=== PATIENT | male | born 1960 | race Hispanic/Latino ===

== ENCOUNTER 2016-12-07 18:38 | Observation (INO) | payer OTHER ==
[2016-12-07] MEDS ORDERED: Glucagon Recombinant 1 mg Inj IM STA (19:34)
[2016-12-07] MEDS ORDERED: Glucagon Recombinant 1 mg Inj ONE ×4 (19:39→23:03)
--- NOTE | 2016-12-07 20:15 | C.PDOC ---
History Of Present Illness 56 year old male presents to the ED with complaints of sensation foreign body in his throat. Patient states he had steak last night and a piece is stuck in his throat. He notes he is unable to swallow fluids and tried drinking water to help the food down, however he just kept spitting it up. He has had a similar episode in the past bt usually resolved with drinking beer and water. Pt denies SOB, chest pain, vomiting, or any other complaints at this time. Time Seen by Provider: 12/07/16 19:18 Chief Complaint (Nursing): ENT Problem History Per: Patient History/Exam Limitations: None Onset/Duration Of Symptoms: Days Current Symptoms Are (Timing): Still Present Severity: Mild Past Medical History Reviewed: Historical Data, Nursing Documentation, Vital Signs Vital Signs: Last Vital Signs Temp 98.8 F 12/07/16 18:43 Pulse 89 12/07/16 23:21 Resp 22 12/07/16 23:21 BP 169/103 H 12/07/16 23:21 Pulse Ox 99 12/08/16 00:23 - Medical History PMH: Back Problems Family History: States: Unknown Family Hx - Social History Hx Tobacco Use: Yes Hx Alcohol Use: Yes Hx Substance Use: No - Immunization History Hx Tetanus Toxoid Vaccination: No Hx Influenza Vaccination: Yes Hx Pneumococcal Vaccination: No Review Of Systems Except As Marked, All Systems Reviewed And Found Negative. Constitutional: Negative for: Fever, Chills ENT: Positive for: Other (+Foreign object sensation in throat) Cardiovascular: Negative for: Chest Pain Respiratory: Negative for: Cough, Shortness of Breath Gastrointestinal: Negative for: Vomiting Physical Exam - Physical Exam Appears: Non-toxic, No Acute Distress Skin: Normal Color, Warm, Dry Head: Atraumatic, Normacephalic Eye(s): bilateral: Normal Inspection Oral Mucosa: Moist Throat: Normal, No Erythema, No Exudate, No Drooling, Other (No foreign object visualized) Neck: Normal, Supple, No Other (mass) Chest: Symmetrical Cardiovascular: Rhythm Regular Respiratory: Normal Breath Sounds, No Accessory Muscle Use, No Rales, No Rhonchi , No Wheezing Gastrointestinal/Abdominal: Normal Exam, Soft, No Tenderness Neurological/Psych: Oriented x3, Normal Speech, Normal Cognition Gait: Steady ED Course And Treatment - Laboratory Results Result Diagrams: 12/08/16 00:12/08/16 00:05 O2 Sat by Pulse Oximetry: 99 (Room air) Pulse Ox Interpretation: Normal Progress Note: patient given Glucagon IM. Upon reevaluation, patient states he feels the same. Case discussed with Dr. Guzman who recommended repeating Glucagon 1 mg IV and if after 15 minutes symptoms persist, giving Reglan 10mg IV. If after another 30 minutes the patient has no relief he advised another dose of Glucagon 1-2 mg IV and if this all fails, patient is to be admitted to medicine and he will evaluate him in the morning. Pt still feels the same after all meds were given, will be admitted to Dr Padilla's service for GI consult in AM. Reevaluation Time: 00:35 Reassessment Condition: Unchanged - Physician Consult Information Physician Contacted: Dakota Padilla Outcome Of Conversation: Case is d/w Dr. Padilla med business support professional who will admit pt to his service. 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 - Scribe Statement The provider has reviewed the documentation as recorded by the Scribe Monet Gregg. All medical record entries made by the Jessicaibe were at my direction and personally dictated by me. I have reviewed the chart and agree that the record accurately reflects my personal performance of the history, physical exam, medical decision making, and the department course for this patient. I have also personally directed, reviewed, and agree with the discharge instructions and disposition.
[2016-12-07] MEDS ORDERED: Glucagon Recombinant 1 mg Inj IV STA ×2 (20:56→22:36)
--- NOTE | 2016-12-08 00:01 | CP.PCM.HP ---
<Milo De La Torre - Last Filed: 12/08/16 07:30> History of Present Illness - History of Present Illness History of Present Illness: CC: Difficulty swallowing x 1day HPI: 56 year old male with PMHx HTN, Hypercholesterolemia, ETOH abuse - presents c/o foreign body sensation in his throat. Patient states he had steak last night and a piece is stuck in his throat. He reports associated dysphagia with throat discomfort left/lateral to the cricoid. He notes he is unable to swallow fluids and tried drinking water to help the food down, however this resulted in him choking, coughing, and spitting up the fluid. He has had similar episodes in the past, but usually resolve after drinking water/beer. Pt also reports an extensive history of daily alcohol abuse (see below), and typically becomes tremulous when he does not drink. Pt denies f/c, headache, chest pain, palpitations, SOB, abdominal pain, n/v, d/c, dysuria, sick contacts , or any other complaints at this time. PMHx: HTN, Hypercholesterolemia, ETOH abuse, kidney stones, Concussion with hematoma PSHx: Skin Graft of Right Foot due to mccurdy. Meds: Vicodin, Xanax, Diltiazem, plus other medications (unsure of dosing) Allergies: NKDA FamHx: Father at 58yo of liver cirrhosis; Mother at 80yo of Alzheimers SocHx: Smokes 3 cigarets/day x 20yrs; ETOH 2 40oz beer/day x 30yrs; Denies drugs; [facility]; Works for [employer]. PMD: Dr. Rahat Montiel Present on Admission - Present on Admission Any Indicators Present on Admission: No Review of Systems - Constitutional Constitutional: absent: Chills, Fatigue, Fever, Headache - EENT Eyes: absent: Blurred Vision, Change in Vision Nose/Mouth/Throat: Dysphagia, Sore Throat. absent: Nasal Congestion, Nasal Discharge - Cardiovascular Cardiovascular: absent: Chest Pain, Diaphoresis, Dyspnea - Respiratory Respiratory: absent: Dyspnea, Hemoptysis - Gastrointestinal Gastrointestinal: Belching, Dysphagia. absent: Bloating, Constipation, Diarrhea - Genitourinary Genitourinary: absent: Dysuria, Nocturia - Musculoskeletal Musculoskeletal: absent: Atrophy, Numbness, Tingling - Neurological Neurological: absent: Dizziness, Tremor, Weakness - Psychiatric Psychiatric: absent: Anhedonia, Anxiety, Confusion, Depression - Endocrine Endocrine: absent: Fatigue, Palpitations - Hematologic/Lymphatic Hematologic: absent: Easy Bleeding, Easy Bruising Past Patient History - Past Social History Smoking Status: Heavy Smoker > 10 Cigarettes Daily - PSYCHIATRIC Hx Substance Use: No - SURGICAL HISTORY Hx Surgeries: Yes Other/Comment: leg - ANESTHESIA Hx Anesthesia: Yes Hx Anesthesia Reactions: No Meds Allergies/Adverse Reactions: Allergies Allergy/AdvReac Type Severity Reaction Status Date / Time No Known Allergies Allergy Unverified 08/19/13 16:46 Physical Exam - Constitutional Appears: Non-toxic, No Acute Distress - Head Exam Head Exam: ATRAUMATIC, NORMAL INSPECTION - Eye Exam Eye Exam: EOMI, Normal appearance, PERRL - ENT Exam ENT Exam: Mucous Membranes Moist (copious saliva production), Normal Oropharynx - Neck Exam Neck exam: Positive for: Tenderness (Left/lateral of cricoid). Negative for: Lymphadenopathy, Thyromegaly - Respiratory Exam Respiratory Exam: Clear to Auscultation Bilateral, NORMAL BREATHING PATTERN. absent: Wheezes - Cardiovascular Exam Cardiovascular Exam: REGULAR RHYTHM, +S1, +S2 - GI/Abdominal Exam GI & Abdominal Exam: Normal Bowel Sounds, Soft. absent: Tenderness - Extremities Exam Extremities exam: Positive for: normal inspection - Neurological Exam Neurological exam: Alert, CN II-XII Intact, Oriented x3, Reflexes Normal - Psychiatric Exam Psychiatric exam: Normal Affect, Normal Mood - Skin Skin Exam: Dry, Intact, Normal Color, Warm Results - Vital Signs Recent Vital Signs: Last Vital Signs Temp 98.8 F 12/07/16 18:43 Pulse 89 12/07/16 23:21 Resp 22 12/07/16 23:21 BP 169/103 H 12/07/16 23:21 Pulse Ox 98 12/07/16 23:21 - Labs Result Diagrams: 12/08/16 07:06 12/08/16 00:05 Assessment & Plan - Assessment and Plan (Free Text) Assessment: Foreign body sensation in Throat -GI Consult, Dr. Guzman - recommended repeating Glucagon 1 mg IV, giving Reglan 10mg IV, and another dose of Glucagon 1mg IV (glucagon for decreased peristalsis and relaxation of esophageal smooth muscle). Since treatment failed , GI will evaluate him in the morning. -f/u CT neck soft tissue- unofficial read with Edge Stripper shows evidence of foreign body lodged within esophagus just below the epiglottis -f/u CT Chest -NPO Alcohol Abuse -hx of alcohol withdrawal and tremors when he does not drink (last drink 12/05/16 ) -Ativan 1mg IVP Q3H PRN, anxiety -Ativan 1mg IVP stat -Thiamine 100mg IV once -Tbili 1.4 H; AST 36; ALT 39. HTN -BP on admission 172/104 (pt reports his average BP is 175/100). -Pt unsure of his home medication Hx Hypercholesterolemia -Pt unsure of his home medication Electrolyte Imbalance -Hypokalemia, K3.2 --> 1/2NS w/KCl 40 at 100cc/hr Prophylaxis -SCDs -NPO -Hold heparin for possible GI procedure - Date & Time Date: 12/08/16 Time: 00:02 <Dakota Padilla - Last Filed: 12/22/16 19:28> Results - Vital Signs Recent Vital Signs: Last Vital Signs Temp 98.6 F 12/09/16 10:55 Pulse 83 12/09/16 10:55 Resp 17 12/09/16 10:55 BP 141/89 12/09/16 10:55 Pulse Ox 99 12/09/16 10:55 - Labs Result Diagrams: 12/09/16 07:10 12/09/16 07:10 Attending/Attestation - Attestation I have personally seen and examined this patient.: Yes I have fully participated in the care of the patient.: Yes I have reviewed all pertinent clinical information: Yes
[2016-12-08 00:12] LABS: BASO % 0.4 % (0.0-2.0); EOS # 0.1 K/uL (0.0-0.7); EOS % 0.8 % (0.0-4.0); HEMATOCRIT 43.4 % (35.0-51.0); LYMPH # 1.1 K/uL (1.0-4.3); LYMPH % 14.8 % (20.0-40.0); MEAN CELL VOLUME 91.7 fL (80.0-94.0); MEAN CORPUSCULAR HEMOGLOBIN 30.9 pg (27.0-31.0); MEAN CORPUSCULAR HGB CONC 33.7 g/dL (33.0-37.0); MEAN PLATELET VOLUME 9.2 fL (7.2-11.7); MONO # 0.6 K/uL (0.0-0.8); MONO % 7.2 % (0.0-10.0); RED CELL DISTRIBUTION WIDTH 13.1 % (11.5-14.5); WHITE BLOOD COUNT 7.7 K/uL (4.8-10.8)
[2016-12-08 00:17] LABS: INR 1.1
[2016-12-08 00:18] LABS: CHLORIDE 106 mmol/L (98-107); POTASSIUM 3.2 mmol/L (3.6-5.2); SODIUM 142 mmol/L (132-148)
[2016-12-08 00:20] LABS: BILIRUBIN,TOTAL 1.4 mg/dL (0.2-1.3); GFR AFRICAN-AMERICAN > 60
[2016-12-08 00:21] LABS: ALB/GLOB RATIO 1.3 (1.0-2.1); ALKALINE PHOSPHATASE 59 U/L (38-126); ALT/SGPT 39 U/L (21-72); AST/SGOT 36 U/L (17-59); BLOOD UREA NITROGEN 16 mg/dL (9-20); CALCIUM 9.4 mg/dl (8.6-10.4); CARBON DIOXIDE 22 mmol/L (22-30); GLUCOSE,RANDOM 159 mg/dL (75-110); TOTAL PROTEIN 8.1 g/dL (6.3-8.3)
[2016-12-08] MEDS ORDERED: Thiamine 100 mg/ml Inj IV ONE (01:33)
[2016-12-08 01:50] LABS: MAGNESIUM 2.3 mg/dL (1.6-2.3)
[2016-12-08] MEDS: Potassium Chloride 40 MEQ in Sodium Chloride 0.45% 1,000 ML IV SCH ×4 (02:59→22:25)
[2016-12-08 07:19] LABS: BASO % 0.6 % (0.0-2.0); EOS # 0.1 K/uL (0.0-0.7); EOS % 1.3 % (0.0-4.0); HEMATOCRIT 43.5 % (35.0-51.0); LYMPH # 1.3 K/uL (1.0-4.3); MEAN CORPUSCULAR HEMOGLOBIN 31.5 pg (27.0-31.0); MEAN CORPUSCULAR HGB CONC 34.2 g/dL (33.0-37.0); MEAN PLATELET VOLUME 9.3 fL (7.2-11.7); MONO # 0.6 K/uL (0.0-0.8); MONO % 8.6 % (0.0-10.0); RED CELL DISTRIBUTION WIDTH 13.1 % (11.5-14.5); WHITE BLOOD COUNT 7.2 K/uL (4.8-10.8)
[2016-12-08 07:28] LABS: CHLORIDE 106 mmol/L (98-107); POTASSIUM 3.7 mmol/L (3.6-5.2); SODIUM 145 mmol/L (132-148)
[2016-12-08 07:30] LABS: ALB/GLOB RATIO 1.3 (1.0-2.1); ALKALINE PHOSPHATASE 60 U/L (38-126); AST/SGOT 38 U/L (17-59); BILIRUBIN,TOTAL 1.5 mg/dL (0.2-1.3); BLOOD UREA NITROGEN 19 mg/dL (9-20); CARBON DIOXIDE 23 mmol/L (22-30); GFR AFRICAN-AMERICAN > 60; TOTAL PROTEIN 8.1 g/dL (6.3-8.3)
[2016-12-08 07:31] LABS: ALT/SGPT 33 U/L (21-72); CALCIUM 9.2 mg/dl (8.6-10.4); GLUCOSE,RANDOM 107 mg/dL (75-110); MAGNESIUM 2.1 mg/dL (1.6-2.3); PHOSPHOROUS 3.9 mg/dL (2.5-4.5)
--- NOTE | 2016-12-08 08:26 | CT ---
PROCEDURE: CT Chest without contrast HISTORY: Foreign body COMPARISON: None. TECHNIQUE: Contiguous axial images were obtained through the chest without intravenous contrast enhancement. Sagittal and coronal reconstructions were performed. Radiation dose (DLP): 581.86 mGy-cm. This CT exam was performed using one or more of the following dose reduction techniques: Automated exposure control, adjustment of the mA and/or kV according to patient size, and/or use of iterative reconstruction technique. FINDINGS: LUNGS: Clear lungs. Visualized airways demonstrate mild bubbly soft tissue density in the posterior right mid trachea likely mucous. No radiopaque foreign body identified. MEDIASTINUM: Unremarkable thoracic aorta. No aneurysm. Normal sized heart. No significant pericardial effusion. Coronary arterial calcifications noted. Main pulmonary artery unremarkable. No vascular congestion. No lymphadenopathy. PLEURA: No pleural fluid. No pneumothorax. BONES: No fracture. No destructive lesion. The osseous structures demonstrate degenerative changes. UPPER ABDOMEN: Geographic hypoattenuation of the liver consistent with hepatic steatosis. No intrahepatic biliary ductal dilatation. Collapsed stomach limiting evaluation. Visualized portions of the colon and small bowel are grossly unremarkable OTHER FINDINGS: 2.3 x 1.3 x 2.4 centimeter oval-shaped soft tissue nodule, with clear margins, in the anterior soft tissues just left of midline. Soft tissue punctate calcification in the posterior aspect on the right. Bubbly soft tissue density in the proximal aspect of the esophagus with minimal focal expansion of the esophagus, measuring approximately 2.3 centimeter, best seen on series 4, image 11. IMPRESSION: No radiopaque foreign body identified within the airways. Minimal presumed mucous. Bubbly soft tissue density in the proximal aspect of the esophagus with mild focal expansion of the esophagus. This is best seen on series 4, image 11. Clinical correlation required. Direct visualization can be obtained with endoscopy. 2.3 x 1.3 x 2.4 centimeter oval-shaped soft tissue nodule with clear margins in the anterior aspect, left of midline. Please note that this report is in general agreement with the preliminary report provided by [facility].
--- NOTE | 2016-12-08 09:00 | CT ---
PROCEDURE: CT NECK WITHOUT CONTRAST HISTORY: foreign body COMPARISON: None. TECHNIQUE: CT of the neck without intravenous contrast. Coronal and sagittal reformats generated. Radiation dose: DLP 424.44 mGy-cm This CT exam was performed using one or more of the following dose reduction techniques: Automated exposure control, adjustment of the mA and/or kV according to patient size, and/or use of iterative reconstruction technique. FINDINGS: There are retention cysts/polyps in the maxillary sinuses. NASOPHARYNX: Unremarkable. SUPRAHYOID NECK: Unremarkable oropharynx, oral cavity, parapharyngeal space and retropharyngeal space. INFRAHYOID NECK: Unremarkable larynx, hypopharynx, and supraglottic space. Vocal cords intact. MASS: None. GLANDS: Parotid and submandibular glands unremarkable. Normal size thyroid gland, without nodule. LYMPH NODES: There is mild asymmetric enlargement of the left submandibular lymph nodes. CERVICAL SPINE: No fracture or focal lesion. Degenerative disc disease with bridging anterior osteophytes at C4-5. OTHER FINDINGS: There is apparent dilatation of the esophagus at the level of T1-T2 with central heterogeneous material. No radiopaque foreign body. IMPRESSION: Mild dilatation of the proximal thoracic esophagus which is incompletely imaged. No radiopaque foreign body. Clinical follow-up is recommended and there esophagram could be performed if clinically indicated. 2. Mild asymmetric enlargement of the left submandibular lymph nodes, likely reactive. A preliminary report was provided by [email or web address].
[2016-12-08] MEDS ORDERED: Midazolam 2 MG/2 ML VIAL ONE (12:15)
[2016-12-08] MEDS ORDERED: Lidocaine 2% Inj (20ml) ONE (12:15)
[2016-12-08] MEDS ORDERED: Propofol 10 mg/ml Inj (20 ML) ONE ×2 (12:17→12:28)
[2016-12-08] MEDS ORDERED: Glucagon Recombinant 1 mg Inj ONE (12:19)
[2016-12-08] MEDS ORDERED: Succinylcholine Chloride 20 mg/ml Syr (5 ml) IV ONE (12:26)
[2016-12-08] MEDS: metroNIDAZOLE IV 500 mg/100 ml 100 ML IVPB SCH ×2 (14:40→22:27)
[2016-12-08 17:49] LABS: CARCINOEMBRYONIC ANTIGEN 2.3 ng/mL (0-3.0)
[2016-12-08 17:54] LABS: CA 19-9 23.6 U/mL (0-37)
--- NOTE | 2016-12-08 20:09 | CP.PCM.PN ---
<Sea Godoy - Last Filed: 12/08/16 20:06> Subjective - Date & Time of Evaluation Date of Evaluation: 12/08/16 Time of Evaluation: 09:20 - Subjective Subjective: 56 year old male with PMHx HTN, Hypercholesterolemia, ETOH abuse - presents c/o foreign body sensation in his throat. Pt. underwent EGD today and per pt. he stated that a piece of steak was removed and he feels much better. He will also have to repeat EGD tomorrow. Pt denies f/c, headache, chest pain, palpitations, SOB, abdominal pain, n/v, d/c, or dysuria. Objective - Vital Signs/Intake and Output Vital Signs (last 24 hours): Temp Pulse Resp BP Pulse Ox 98.4 F 97 H 20 142/93 H 98 12/08/16 15:05 12/08/16 15:05 12/08/16 15:05 12/08/16 15:05 12/08/16 15:05 Intake and Output: 12/08/16 12/09/16 18:59 06:59 Intake Total 480 Balance 480 - Medications Medications: Current Medications Potassium Chloride 40 meq/ (Sodium Chloride) 1,020 mls @ 100 mls/hr IV .[id number] [facility] Last Admin: 12/08/16 18:39 Dose: 100 mls/hr Metronidazole (Flagyl) 100 mls @ 100 mls/hr IVPB Q8H [facility] Last Admin: 12/08/16 14:40 Dose: 100 mls/hr Ceftriaxone Sodium 1 gm/ (Sodium Chloride) 100 mls @ 100 mls/hr IVPB Q12H [facility] Last Admin: 12/08/16 13:34 Dose: 50 mls Lorazepam (Ativan) 1 mg IVP Q6H PRN PRN Reason: Anxiety Pneumococcal Polyvalent Vaccine (Pneumovax 23 Vaccine) 0.5 ml IM .ONCE ONE Stop: 12/10/16 10:01 Sucralfate (Carafate Oral Susp) 1 gm PO ACBHS [facility] - Labs Labs: 12/08/16 07:06 12/08/16 07:06 PT 11.9 SECONDS (9.7-12.2) 12/08/16 00:05 INR 1.1 12/08/16 00:05 APTT 30 SECONDS (21-34) 12/08/16 00:05 - Constitutional Appears: Non-toxic, No Acute Distress - Head Exam Head Exam: ATRAUMATIC - Eye Exam Eye Exam: EOMI - ENT Exam ENT Exam: Mucous Membranes Moist - Neck Exam Neck Exam: Full ROM, Normal Inspection. absent: Lymphadenopathy, Thyromegaly - Respiratory Exam Respiratory Exam: Clear to Ausculation Bilateral, NORMAL BREATHING PATTERN. absent: Rhonchi, Wheezes - Cardiovascular Exam Cardiovascular Exam: REGULAR RHYTHM, RRR, +S1, +S2. absent: JVD - GI/Abdominal Exam GI & Abdominal Exam: Soft, Normal Bowel Sounds. absent: Tenderness - Extremities Exam Extremities Exam: Full ROM. absent: Joint Swelling - Neurological Exam Neurological Exam: Alert, Awake, CN II-XII Intact, Normal Gait, Oriented x3 - Psychiatric Exam Psychiatric exam: Normal Affect, Normal Mood - Skin Skin Exam: Dry, Intact, Normal Color, Warm Assessment and Plan - Assessment and Plan (Free Text) Plan: Foreign body sensation in Throat -GI Consult, Dr. Guzman - recommended repeating Glucagon 1 mg IV, giving Reglan 10mg IV, and another dose of Glucagon 1mg IV (glucagon for decreased peristalsis and relaxation of esophageal smooth muscle). Since treatment failed , GI will evaluate him in the morning. -CT neck soft tissue- No radioopaque foreign body found, mild dilation of prox thoracic esophagus - please see full report -CT Chest -No radioopaque foreign body found - please see full report -EGD on 12/08 removed food particle and will repeat EGD tomorrow, pt. feels better. -NPO after breakfast Alcohol Abuse -hx of alcohol withdrawal and tremors when he does not drink (last drink 12/05/16 ) -Ativan 1mg IVP Q3H PRN, anxiety -Ativan 1mg IVP stat -Thiamine 100mg IV once -Tbili 1.4 H; AST 36; ALT 39. HTN -BP on admission 172/104 (pt reports his average BP is 175/100). -BP 142/93 on 12/08 -Pt unsure of his home medication Hx Hypercholesterolemia -Pt unsure of his home medication Electrolyte Imbalance -Hypokalemia, K3.2 --> 1/2NS w/KCl 40 at 100cc/hr Prophylaxis -SCDs -NPO after breakfast -Hold heparin for possible GI procedure <Todd Hernandez - Last Filed: 12/09/16 18:02> Objective - Vital Signs/Intake and Output Vital Signs (last 24 hours): Temp Pulse Resp BP Pulse Ox 98.6 F 83 17 141/89 99 12/09/16 10:55 12/09/16 10:55 12/09/16 10:55 12/09/16 10:55 12/09/16 10:55 Intake and Output: 12/09/16 12/09/16 06:59 18:59 Intake Total 1200 250 Balance 1200 250 - Labs Labs: 12/09/16 07:10 12/09/16 07:10 PT 11.9 SECONDS (9.7-12.2) 12/08/16 00:05 INR 1.1 12/08/16 00:05 APTT 30 SECONDS (21-34) 12/08/16 00:05 Attending/Attestation - Attestation I have personally seen and examined this patient.: Yes I have fully participated in the care of the patient.: Yes I have reviewed all pertinent clinical information, including history, physical exam and plan: Yes Notes (Text): 12/09/16 18:01 Patient was seen and examined at bedside with resident S/P EGD and removal of foreign body I agree with above assessment/plan by the resident
[2016-12-08] MEDS: Sucralfate 1 gm/10 ml Oral Susp UD PO SCH (22:27)
[2016-12-09 07:37] LABS: BASO % 0.6 % (0.0-2.0); EOS # 0.1 K/uL (0.0-0.7); EOS % 2.5 % (0.0-4.0); HEMATOCRIT 41.8 % (35.0-51.0); LYMPH # 1.1 K/uL (1.0-4.3); LYMPH % 19.2 % (20.0-40.0); MEAN CELL VOLUME 92.2 fL (80.0-94.0); MEAN CORPUSCULAR HEMOGLOBIN 31.3 pg (27.0-31.0); MEAN PLATELET VOLUME 9.4 fL (7.2-11.7); MONO # 0.5 K/uL (0.0-0.8); MONO % 8.9 % (0.0-10.0); RED CELL DISTRIBUTION WIDTH 12.8 % (11.5-14.5); WHITE BLOOD COUNT 5.7 K/uL (4.8-10.8)
[2016-12-09 08:24] LABS: CHLORIDE 104 mmol/L (98-107); POTASSIUM 3.8 mmol/L (3.6-5.2); SODIUM 137 mmol/L (132-148)
[2016-12-09 08:26] LABS: AST/SGOT 38 U/L (17-59); BILIRUBIN,TOTAL 1.2 mg/dL (0.2-1.3); CARBON DIOXIDE 22 mmol/L (22-30); GFR AFRICAN-AMERICAN > 60
[2016-12-09 08:27] LABS: ALB/GLOB RATIO 1.3 (1.0-2.1); ALKALINE PHOSPHATASE 52 U/L (38-126); ALT/SGPT 30 U/L (21-72); BLOOD UREA NITROGEN 13 mg/dL (9-20); CALCIUM 8.5 mg/dl (8.6-10.4); GLUCOSE,RANDOM 94 mg/dL (75-110); PHOSPHOROUS 3.7 mg/dL (2.5-4.5)
[2016-12-09 08:28] LABS: MAGNESIUM 1.9 mg/dL (1.6-2.3)
[2016-12-09 08:57] LABS: CARCINOEMBRYONIC ANTIGEN 2.1 ng/mL (0-3.0)
[2016-12-09] MEDS ORDERED: Midazolam 2 MG/2 ML VIAL ONE (10:07)
[2016-12-09] MEDS ORDERED: Propofol 10 mg/ml Inj (20 ML) ONE (10:08)
--- NOTE | 2016-12-09 10:29 | CP.PCM.PN ---
Subjective - Date & Time of Evaluation Date of Evaluation: 12/09/16 Time of Evaluation: 07:30 Objective - Vital Signs/Intake and Output Vital Signs (last 24 hours): Temp Pulse Resp BP Pulse Ox 98.3 F 71 20 151/86 H 98 12/09/16 10:05 12/09/16 10:05 12/09/16 10:05 12/09/16 10:05 12/09/16 10:05 Intake and Output: 12/09/16 12/09/16 06:59 18:59 Intake Total 1200 100 Balance 1200 100 - Medications Medications: Current Medications Potassium Chloride 40 meq/ (Sodium Chloride) 1,020 mls @ 100 mls/hr IV .[id number] [facility] Last Admin: 12/08/16 22:25 Dose: Not Given Metronidazole (Flagyl) 100 mls @ 100 mls/hr IVPB Q8H [facility] Last Admin: 12/08/16 22:27 Dose: 100 mls/hr Ceftriaxone Sodium 1 gm/ (Sodium Chloride) 100 mls @ 100 mls/hr IVPB Q12H [facility] Last Admin: 12/09/16 01:45 Dose: 100 mls/hr Lorazepam (Ativan) 1 mg IVP Q6H PRN PRN Reason: Anxiety Pneumococcal Polyvalent Vaccine (Pneumovax 23 Vaccine) 0.5 ml IM .ONCE ONE Stop: 12/10/16 10:01 Sucralfate (Carafate Oral Susp) 1 gm PO ACBHS [facility] Last Admin: 12/08/16 22:27 Dose: 1 gm - Labs Labs: 12/09/16 07:10 12/09/16 07:10 PT 11.9 SECONDS (9.7-12.2) 12/08/16 00:05 INR 1.1 12/08/16 00:05 APTT 30 SECONDS (21-34) 12/08/16 00:05 - Constitutional Appears: Non-toxic, No Acute Distress - Head Exam Head Exam: ATRAUMATIC, NORMOCEPHALIC - Eye Exam Eye Exam: EOMI - ENT Exam ENT Exam: Mucous Membranes Moist - Neck Exam Neck Exam: Full ROM - Respiratory Exam Respiratory Exam: Clear to Ausculation Bilateral, NORMAL BREATHING PATTERN. absent: Wheezes - Cardiovascular Exam Cardiovascular Exam: REGULAR RHYTHM, RRR, +S1, +S2. absent: JVD - GI/Abdominal Exam GI & Abdominal Exam: Soft. absent: Tenderness - Extremities Exam Extremities Exam: Full ROM. absent: Joint Swelling, Pedal Edema - Neurological Exam Neurological Exam: Alert, Awake, CN II-XII Intact, Normal Gait, Oriented x3 - Psychiatric Exam Psychiatric exam: Normal Affect, Normal Mood - Skin Skin Exam: Dry, Intact, Normal Color, Warm
[2016-12-09] MEDS: Sucralfate 1 gm/10 ml Oral Susp UD PO SCH (10:36)
[2016-12-09 10:41] VITALS: TEMP 98.6
[2016-12-09 10:43] VITALS: RESP 17; O2SAT 99
[2016-12-09] MEDS ORDERED: Pantoprazole 40 mg EC Tab PO SCH (11:00)
[2016-12-09 11:10] VITALS: BP 141/89; PULSE 83
[2016-12-09] MEDS: metroNIDAZOLE IV 500 mg/100 ml 100 ML IVPB SCH (15:09)
[2016-12-09] MEDS ORDERED: Pneumococcal 23-Valent Vaccine IM ONE (16:15)
--- NOTE | 2016-12-09 18:28 | CP.PCM.DIS ---
<Sea Godoy - Last Filed: 12/09/16 23:28> Provider - Provider Date of Admission: 12/08/16 00:28 Attending physician: Dakota Pdailla MD Time Spent in preparation of Discharge (in minutes): 35 Diagnosis - Discharge Diagnosis (1) Esophageal obstruction due to food impaction Status: Acute Hospital Course - Lab Results Lab Results: Most Recent Lab Values WBC 5.7 K/uL (4.8-10.8) 12/09/16 07:10 RBC 4.53 Mil/uL (4.40-5.90) 12/09/16 07:10 Hgb 14.2 g/dL (12.0-18.0) 12/09/16 07:10 Hct 41.8 % (35.0-51.0) 12/09/16 07:10 MCV 92.2 fL (80.0-94.0) 12/09/16 07:10 MCH 31.3 pg (27.0-31.0) H 12/09/16 07:10 MCHC 34.0 g/dL (33.0-37.0) 12/09/16 07:10 RDW 12.8 % (11.5-14.5) 12/09/16 07:10 Plt Count 204 K/uL (130-400) 12/09/16 07:10 MPV 9.4 fL (7.2-11.7) 12/09/16 07:10 Neut % (Auto) 68.8 % (50.0-75.0) 12/09/16 07:10 Lymph % (Auto) 19.2 % (20.0-40.0) L 12/09/16 07:10 [place] % (Auto) 8.9 % (0.0-10.0) 12/09/16 07:10 Eos % (Auto) 2.5 % (0.0-4.0) 12/09/16 07:10 Baso % (Auto) 0.6 % (0.0-2.0) 12/09/16 07:10 Neut # 3.9 K/uL (1.8-7.0) 12/09/16 07:10 Lymph # 1.1 K/uL (1.0-4.3) 12/09/16 07:10 [place] # 0.5 K/uL (0.0-0.8) 12/09/16 07:10 Eos # 0.1 K/uL (0.0-0.7) 12/09/16 07:10 Baso # 0.0 K/uL (0.0-0.2) 12/09/16 07:10 PT 11.9 SECONDS (9.7-12.2) 12/08/16 00:05 INR 1.1 12/08/16 00:05 APTT 30 SECONDS (21-34) 12/08/16 00:05 Sodium 137 mmol/L (132-148) 12/09/16 07:10 Potassium 3.8 mmol/L (3.6-5.2) 12/09/16 07:10 Chloride 104 mmol/L (98-107) 12/09/16 07:10 Carbon Dioxide 22 mmol/L (22-30) 12/09/16 07:10 Anion Gap 16 (10-20) 12/09/16 07:10 BUN 13 mg/dL (9-20) 12/09/16 07:10 Creatinine 0.8 MG/DL (0.8-1.5) 12/09/16 07:10 Est GFR ( Amer) > 60 12/09/16 07:10 Est GFR (Non-Af Amer) > 60 12/09/16 07:10 Random Glucose 94 mg/dL (75-110) 12/09/16 07:10 Calcium 8.5 mg/dl (8.6-10.4) L 12/09/16 07:10 Phosphorus 3.7 mg/dL (2.5-4.5) 12/09/16 07:10 Magnesium 1.9 mg/dL (1.6-2.3) 12/09/16 07:10 Total Bilirubin 1.2 mg/dL (0.2-1.3) 12/09/16 07:10 AST 38 U/L (17-59) 12/09/16 07:10 ALT 30 U/L (21-72) 12/09/16 07:10 Alkaline Phosphatase 52 U/L (38-126) 12/09/16 07:10 Total Protein 7.0 g/dL (6.3-8.3) 12/09/16 07:10 Albumin 4.0 g/dL (3.5-5.0) 12/09/16 07:10 Globulin 3.0 gm/dL (2.2-3.9) 12/09/16 07:10 Albumin/Globulin Ratio 1.3 (1.0-2.1) 12/09/16 07:10 Alpha Fetoprotein 3.0 ng/mL (0.0-7.5) 12/08/16 16:50 Carcinoembryonic Ag 2.1 ng/mL (0-3.0) 12/09/16 07:10 CA 19-9 Antigen 23.6 U/mL (0-37) 12/08/16 16:50 - Hospital Course Hospital Course: 56 year old male with PMHx HTN, Hypercholesterolemia, ETOH abuse presented c/o foreign body sensation in his throat. Patient stateed he was eating steak and a piece got stuck. He reported associated dysphagia with throat discomfort left/ lateral to the cricoid. He noted he was unable to swallow fluids and tried drinking water to help the food down, however this resulted in him choking, coughing, and spitting up the fluid. CT Chest demonstrated no radioopaque foreign body found. CT neck soft tissue showed no radioopaque foreign body found and mild dilation of proximal thoracic esophagus. EGD demonstrated esophagitis, esophageal stenosis, food in the esophagus, acute gastritis, and duodenal ulcer. An EGD was performed the following day for dilation of the esophagus. After the second EGD. Pt. was medically stable for discharge and advised to follow up with GI in 1 week. This is a brief account of his stay, for more details please see his chart. - Date & Time of H&P Date of H&P: 12/09/16 Time of H&P: 07:30 Discharge Exam - Head Exam Head Exam: ATRAUMATIC, NORMOCEPHALIC - Eye Exam Eye Exam: EOMI - ENT Exam ENT Exam: Mucous Membranes Moist - Neck Exam Neck exam: Full Rom - Respiratory Exam Respiratory Exam: Clear to PA & Lateral, NORMAL BREATHING PATTERN, UNREMARKABLE. absent: Wheezes - Cardiovascular Exam Cardiovascular Exam: REGULAR RHYTHM, RRR, +S1, +S2. absent: JVD - GI/Abdominal Exam GI & Abdominal Exam: Normal Bowel Sounds, Soft, Unremarkable. absent: Tenderness - Neurological Exam Neurological exam: Alert, CN II-XII Intact, Normal Gait, Oriented x3 - Skin Skin Exam: Dry, Intact, Normal Color, Warm Discharge Plan - Discharge Medications Prescriptions: Pantoprazole [Protonix EC Tab] 40 mg PO DAILY #30 ect - Follow Up Plan Condition: GOOD Disposition: HOME/ ROUTINE Instructions: Pantoprazole (By mouth), Upper Endoscopy (DC) Additional Instructions: Pt. medically stable for discharge. Please follow up with Dr. Guzman in 1 week for further work up. Dr Guzman [address] [facility] [id number] <Todd Hernandez M - Last Filed: 12/10/16 18:05> Provider - Provider Date of Admission: 12/08/16 00:28 Attending physician: Dakota Padilla MD Hospital Course - Lab Results Lab Results: Most Recent Lab Values WBC 5.7 K/uL (4.8-10.8) 12/09/16 07:10 RBC 4.53 Mil/uL (4.40-5.90) 12/09/16 07:10 Hgb 14.2 g/dL (12.0-18.0) 12/09/16 07:10 Hct 41.8 % (35.0-51.0) 12/09/16 07:10 MCV 92.2 fL (80.0-94.0) 12/09/16 07:10 MCH 31.3 pg (27.0-31.0) H 12/09/16 07:10 MCHC 34.0 g/dL (33.0-37.0) 12/09/16 07:10 RDW 12.8 % (11.5-14.5) 12/09/16 07:10 Plt Count 204 K/uL (130-400) 12/09/16 07:10 MPV 9.4 fL (7.2-11.7) 12/09/16 07:10 Neut % (Auto) 68.8 % (50.0-75.0) 12/09/16 07:10 Lymph % (Auto) 19.2 % (20.0-40.0) L 12/09/16 07:10 [place] % (Auto) 8.9 % (0.0-10.0) 12/09/16 07:10 Eos % (Auto) 2.5 % (0.0-4.0) 12/09/16 07:10 Baso % (Auto) 0.6 % (0.0-2.0) 12/09/16 07:10 Neut # 3.9 K/uL (1.8-7.0) 12/09/16 07:10 Lymph # 1.1 K/uL (1.0-4.3) 12/09/16 07:10 [place] # 0.5 K/uL (0.0-0.8) 12/09/16 07:10 Eos # 0.1 K/uL (0.0-0.7) 12/09/16 07:10 Baso # 0.0 K/uL (0.0-0.2) 12/09/16 07:10 PT 11.9 SECONDS (9.7-12.2) 12/08/16 00:05 INR 1.1 12/08/16 00:05 APTT 30 SECONDS (21-34) 12/08/16 00:05 Sodium 137 mmol/L (132-148) 12/09/16 07:10 Potassium 3.8 mmol/L (3.6-5.2) 12/09/16 07:10 Chloride 104 mmol/L (98-107) 12/09/16 07:10 Carbon Dioxide 22 mmol/L (22-30) 12/09/16 07:10 Anion Gap 16 (10-20) 12/09/16 07:10 BUN 13 mg/dL (9-20) 12/09/16 07:10 Creatinine 0.8 MG/DL (0.8-1.5) 12/09/16 07:10 Est GFR ( Amer) > 60 12/09/16 07:10 Est GFR (Non-Af Amer) > 60 12/09/16 07:10 Random Glucose 94 mg/dL (75-110) 12/09/16 07:10 Calcium 8.5 mg/dl (8.6-10.4) L 12/09/16 07:10 Phosphorus 3.7 mg/dL (2.5-4.5) 12/09/16 07:10 Magnesium 1.9 mg/dL (1.6-2.3) 12/09/16 07:10 Total Bilirubin 1.2 mg/dL (0.2-1.3) 12/09/16 07:10 AST 38 U/L (17-59) 12/09/16 07:10 ALT 30 U/L (21-72) 12/09/16 07:10 Alkaline Phosphatase 52 U/L (38-126) 12/09/16 07:10 Total Protein 7.0 g/dL (6.3-8.3) 12/09/16 07:10 Albumin 4.0 g/dL (3.5-5.0) 12/09/16 07:10 Globulin 3.0 gm/dL (2.2-3.9) 12/09/16 07:10 Albumin/Globulin Ratio 1.3 (1.0-2.1) 12/09/16 07:10 Alpha Fetoprotein 3.0 ng/mL (0.0-7.5) 12/08/16 16:50 Carcinoembryonic Ag 2.1 ng/mL (0-3.0) 12/09/16 07:10 CA 19-9 Antigen 23.6 U/mL (0-37) 12/08/16 16:50 Attending/Attestation - Attestation I have personally seen and examined this patient.: Yes I have fully participated in the care of the patient.: Yes I have reviewed all pertinent clinical information, including history, physical exam and plan: Yes Notes (Text): 12/10/16 18:05 Patient was seen and examined at bedside with the resident Status post EGD and removal of foreign body and dilation of stricture I agree with the above discharge note by the resident
--- NOTE | 2016-12-11 06:07 | CON ---
DATE: 12/07/[address] Trent Guzman to Dr. Dakota Padilla. I was called for GI consultation by the admitting medical team. The patient is seen and fully examin ed on 12/07/2016 as requested by the ER medical and nursing staff, as well as the admitting medical t iris. The entire chart is reviewed, including but not limited to the most recent lab and radiology st udy results, current and previous medication list, current and the previous medical events, allergies to medications list, as well as all the available current and the previous medical record. Case dis cussed at length with the admitting medical team. HISTORY OF PRESENT ILLNESS: This is a 56-year-old male who was admitted to the hospital through the Emergency Room due to dysphagia with sensation of esophageal foreign body that was stuck with difficu lty even swallowing his saliva at times for the last 24 hours prior to his admission. It has to be mentioned that the patient had such episodes in the past which used to be resolved by dr rojas espinal. No chest pain, palpitations. No chills or fever. No reported active bleeding. PAST MEDICAL HISTORY: Including mainly: 1. Chronic lower back pain syndrome. 2. Apparently peptic ulcer disease. SOCIAL HISTORY: Positive for cigarette smoking, as well as excessive alcohol intake. ALLERGIES: NKDA. FAMILY HISTORY: Noncontributory. CURRENT MEDICATIONS: Medication list post-admission is seen and reviewed. It has to be mentioned that I ordered neck and chest x-ray and CAT scan. Official reports are seen a nd discussed with the ER physician. After being admitted to the hospital, the patient was found to have normal CBC, with low potassium 3. 2, but elevated blood glucose level to 156. PHYSICAL EXAMINATION: GENERAL: A 56-year-old male, awake, alert, oriented and able to communicate verbally. VITAL SIGNS: Afebrile with a pulse of 92, respiratory rate 20-24 with blood pressure of 160/94. HEENT: Showed pale, dry oral mucous membrane. Nonicteric sclerae. LYMPH NODES: No lymphadenitis or lymphadenopathy. LUNGS: Few scattered crepitations. Breathing sounds are present bilaterally. HEART: Positive S1 and S2 with increased rate. ABDOMEN: Soft with slight generalized tenderness. No mass or organomegaly. No rebound tenderness o r guarding. RECTAL: The patient refused. EXTREMITIES: Without significant edema, clubbing or cyanosis. IMPRESSION: 1. Dysphagia, most likely secondary to esophageal foreign body. 2. Abnormal CAT scan of the chest and neck. 3. Rule out esophageal stricture versus esophageal mass lesion. 4. Re-exacerbation of peptic ulcer disease. 5. Alcoholism by history. SUGGESTION: 1. Agree with your plan. 2. Proton pump inhibitors. 3. Reglan. 4. Rehydration. 5. Flagyl IV. 6. Endoscopic evaluation of the GI tract when the patient is more stable clinically. 7. Further recommendations to follow. The patient may need dilation post-removal of the esophageal f oreign body. Thank you for letting me participate in your patient's case management. Trent Guzman MD cc: 14 TT: 12/11/2016 06:06:26 Confirmation # [id number] Dictation # [id number] arpita
== END 2016-12-09 16:40 | disposition home or self-care (01) ==
LOC: C.ER 18:38 → C.3T 12-08 00:28
PROVIDERS: ADMIT Internal Medicine; ATTEND Internal Medicine
DX: K22.2 Esophageal obstruction (principal); K29.00 Acute gastritis without bleeding; F10.10 Alcohol abuse, uncomplicated; E87.6 Hypokalemia; E78.00 Pure hypercholesterolemia, unspecified; F17.210 Nicotine dependence, cigarettes, uncomplicated
CPT/HCPCS: 36415; 43235; 43248; 70490; 71250; 80053; 82105; 82378; 83735; 84100; 85025; 85610; 85730; 86301; 96361; 96365; 96366; 96367; 96372; 96375; 96376; 99285; C1726; G0378; J0696; J1610; J2060; J2765; J3411; J7030

== ENCOUNTER 2019-01-08 17:24 | Emergency (ER) | payer OTHER ==
[2019-01-08] MEDS ORDERED: Tetanus/Diphtheria Toxoids 0.5 ml Syringe IM ONE ×2 (17:45→18:23)
--- NOTE | 2019-01-08 17:45 | C.PDOC ---
History Of Present Illness 58 y.o. male presents for evaluation of facial injury s/p accidental trip and fall while walking onset prior to arrival. HPI limited to intoxication, hx per pt's friend. Per friend, the pt has been drinking all day, he was walking nearby and "next thing I knew I saw him laying on the ground". Pt states "I just tripped" and complains of nasal injury. Denies LOC, nausea, vomiting, numbness, tingling, and any other associated symptoms. 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 FRIEND STATES PT HAS BEEN DRINKING ALL DAY, WAS WALKING NEARBY AND "NEXT THING I KNEW I SAW HIM LAYING ON THE GROUND". PS "I JUST TRIPPED" CO NASAL INJURY. NO LOC, NV. DENIES DENTAL INJURY, OTHER ASSOC SX ROS LIMITED EXAM NONTOXIC MILD DIST HEENT +MID NASAL SWELLING W LAC, NO GROSS DEVIATION; NO EPISTAXIS; NO DENTAL FX OR MALOCCLUSION; EYES EOMI, CONJ CLEAR NECK SUPPLE NONTEND SKIN +1 CM LINEAR LAC MID NOSE NEURO AO3 NO GROSS FOCAL DEF PSYCH INTOX CALM COOPERATIVE REMIANDER NEG Time Seen by Provider: 01/08/19 17:37 History Per: Family, Other (friend. ) History/Exam Limitations: no limitations Onset/Duration Of Symptoms: Other (prior to arrival. ) Patient States: Other (accidental trip and fall. ) Loss Of Consciousness: No Recent travel outside of the [place]: No Past Medical History Reviewed: Historical Data, Nursing Documentation, Vital Signs Vital Signs: Last Vital Signs Temp 97.9 F 01/08/19 17:39 Pulse 85 01/08/19 17:39 Resp 15 01/08/19 17:39 BP 134/77 01/08/19 17:39 Pulse Ox 95 01/08/19 17:39 - Medical History PMH: Back Problems Denies: Chronic Kidney Disease Family History: States: Unknown Family Hx - Social History Hx Tobacco Use: Yes Hx Alcohol Use: Yes Hx Substance Use: No - Immunization History Hx Tetanus Toxoid Vaccination: No Hx Influenza Vaccination: Yes Hx Pneumococcal Vaccination: No Review Of Systems Except As Marked, All Systems Reviewed And Found Negative. Constitutional: Positive for: Other (limited due to the pt's condition. ) Gastrointestinal: Negative for: Nausea, Vomiting Neurological: Negative for: Weakness, Numbness, Incoordination, Other (LOC) Physical Exam - Physical Exam Appears: Non-toxic, No Acute Distress (mild distress. ) Skin: Warm, Dry, Other (+1 CM LINEAR LAC TO THE MID NOSE.) Head: Atraumatic, Normacephalic Eye(s): bilateral: Normal Inspection, EOMI, Other (conjunctiva clear.) Ear(s): Bilateral: Normal Nose: Normal, Other (+MID NASAL SWELLING W LAC, NO GROSS DEVIATION; NO EPISTAXIS .) Oral Mucosa: Moist Teeth: Other (NO DENTAL FX OR MALOCCLUSION.) Throat: Normal, No Erythema, No Exudate Neck: Normal ROM, Supple, No Other (nontender. ) Chest: Symmetrical, No Deformity Cardiovascular: Rhythm Regular, No Murmur Respiratory: Normal Breath Sounds, No Rales, No Rhonchi, No Wheezing Gastrointestinal/Abdominal: Normal Exam, Soft, No Tenderness Extremity: Bilateral: Atraumatic, Normal Color And Temperature, Normal ROM Neurological/Psych: Oriented x3, Normal Speech, Normal Cognition, Other (INTOX CALM COOPERATIVE. (-) NO GROSS FOCAL DEF) ED Course And Treatment O2 Sat by Pulse Oximetry: 95 (RA) Pulse Ox Interpretation: Normal - CT Scan/US CT Head w/o contrast Other Rad Studies (CT/US): Read By Radiologist CT/US Interpretation: IMPRESSION: No acute intracranial abnormality.Inflamm atory changes maxillary sinuses. Old nasal bone fractures. . Electronically signed on January 08, 2019 7:17:34 PM EDT by: Sudhakar Betancourt M.D., Certified by [employer], Diagnostic Radiology CT Facial bones Other Rad Studies (CT/US): Read By Radiologist CT/US Interpretation: IMPRESSION: Displaced nasal bone fractures which may be chronic in nature. Significant lobulated mucous memories thickening maxillary sinuses and significant mucous memories thickening ethmoid and sphenoid and frontal sinuses. Clinical correlation advised. . Electronically signed on January 08, 2019 7:29:12 PM EDT by: Sudhakar Betancourt M.D., Certified by [facility], Diagnostic Radiology CT C-spine Other Rad Studies (CT/US): Read By Radiologist CT/US Interpretation: Impression: Mild hypertrophic and degenerative changes. No acute fracture. . Electronically signed on January 08, 2019 7:39:47 PM EDT by: Sudhakar Betancourt M.D., Certified by [facility], Diagnostic Radiology Reevaluation Time: 21:49 Reassessment Condition: Improved (CLEAR SPEECH AND THOUGHT STEADY GAIT. DC W GIRLFRIEND) Procedure: Wound Repair - Time Performed Time Performed: 21:48 - Time Out Time Out: Side verified, Site verified, Patient ID confirmed - Consent Obtained Consent obtained: Verbal - Performed by Performed by: Attending Physician - Indications Indication(s):: Laceration - Location Location:: Nose Dimensions Length cm: 1 Depth:: Epidermis - Debris Debris:: None - Complexity Complexity:: Simple (one layer) - Wound repair method [place]:: Steri-strips - Patient tolerated procedure Patient Tolerated Procedure:: Well Progress - Re-Evaluation Re-evaluation Note: 01/08/19 21:52 PS HO MULT PRIOR NASAL INJURIES. WANTS STERISTRIPS ONLY. - Data Reviewed Data Reviewed: Diagnostic imaging Medical Decision Making Medical Decision Making: Initial plan: -CT C-spine w/o contrast -CT Head w/o contrast -CT Maxillofacial w/o contrast -Tenivac Disposition Counseled Patient/Family Regarding: Studies Performed, Diagnosis, Need For Followup - Disposition Referrals: YOUR,PMD [Other] Disposition: HOME/ ROUTINE Disposition Time: 21:48 Condition: IMPROVED Instructions: Wound Care (DC), Minor Head Injury (DC) - Clinical Impression Clinical Impression: Alcohol intoxication, Nasal laceration, Minor head injury - Scribe Statement The provider has reviewed the documentation as recorded by the Scribe (Migdalia Judge) Provider Attestation: All medical record entries made by the Scribe were at my direction and personally dictated by me. I have reviewed the chart and agree that the record accurately reflects my personal performance of the history, physical exam, medical decision making, and the department course for this patient. I have also personally directed, reviewed, and agree with the discharge instructions and disposition.
[2019-01-08 18:01] VITALS: BMI 26.5
[2019-01-08 19:09] VITALS: BP 123/86; PULSE 83; RESP 18; TEMP 98.1
[2019-01-08 19:20] VITALS: O2SAT 95
--- NOTE | 2019-01-09 09:44 | CT ---
Date of service: 01/08/2019 PROCEDURE: CT HEAD WITHOUT CONTRAST. HISTORY: TRAUMA COMPARISON: None available. TECHNIQUE: Axial computed tomography images were obtained through the head/brain without intravenous contrast. Radiation dose: Total exam DLP = 1271.0 mGy-cm. This CT exam was performed using one or more of the following dose reduction techniques: Automated exposure control, adjustment of the mA and/or kV according to patient size, and/or use of iterative reconstruction technique. FINDINGS: HEMORRHAGE: No intracranial hemorrhage. BRAIN: No mass effect or edema. No atrophy or chronic microvascular ischemic changes. VENTRICLES: Unremarkable. No hydrocephalus. CALVARIUM: Unremarkable. Old nasal bone fractures. PARANASAL SINUSES: Moderate mucosal thickening of the sinuses noted . MASTOID AIR CELLS: Unremarkable as visualized. No inflammatory changes. OTHER FINDINGS: None. IMPRESSION: No ICH mass effect or midline shift. [id number] sinuses mucosal disease. Preliminary report was submitted by [facility] Radiology contains concordant findings.
--- NOTE | 2019-01-09 10:03 | CT ---
Date of service: 01/08/2019 PROCEDURE: CT MAXILLOFACIAL BONES WITHOUT CONTRAST HISTORY: TRAUMA COMPARISON: None available. TECHNIQUE: Contiguous axial CT images of the maxillofacial bones were obtained. Coronal and sagittal reformats were generated. Radiation dose: Total exam DLP = 840.71 mGy-cm. This CT exam was performed using one or more of the following dose reduction techniques: Automated exposure control, adjustment of the mA and/or kV according to patient size, and/or use of iterative reconstruction technique. FINDINGS: NASAL BONES: There are displaced nasal bone fracture noted could be subacute or old. ORBITS: Unremarkable. PARANASAL SINUSES/ MASTOIDS: There is moderate diffuse mucosal thickening in maxillary ethmoid and frontal sinuses suggestive of sinusitis. MAXILLA: No evidence of acute displaced fracture. MANDIBLE/ TEMPOROMANDIBULAR JOINTS: No evidence of acute displaced fracture. SKULL BASE: Unremarkable. TEMPORAL BONES: Middle ears and mastoid grossly unremarkable. OTHER FINDINGS: None. IMPRESSION: Age indeterminate nasal bone fracture. Moderate sinuses mucosal disease. Preliminary report was submitted by [facility] Radiology contains concordant findings.
--- NOTE | 2019-01-09 10:10 | CT ---
Date of service: 01/08/2019 PROCEDURE: CT Cervical Spine without contrast HISTORY: TRAUMA COMPARISON: None available. TECHNIQUE: Axial computed tomography images were obtained of the cervical spine without the use of intravenous contrast. Coronal and sagittal reformatted images were created and reviewed. Radiation dose: Total exam DLP = 602.16 mGy-cm. This CT exam was performed using one or more of the following dose reduction techniques: Automated exposure control, adjustment of the mA and/or kV according to patient size, and/or use of iterative reconstruction technique. FINDINGS: VERTEBRAE: No fracture. Normal alignment. No destructive bony lesion. DISCS/SPINAL CANAL/NEURAL FORAMINA: There is bridging osteophyte anterior to C4 and C5. No significant central canal or neural foraminal stenosis. Mild degenerative changes noted. PARASPINAL SOFT TISSUES: Unremarkable. OTHER FINDINGS: None. IMPRESSION: No CT evidence of acute displaced cervical spine fracture or traumatic subluxation. Preliminary report was submitted by [facility] Radiology contains concordant findings.
== END 2019-01-08 22:01 | disposition home or self-care (01) ==
LOC: C.ER 17:24
DX: S01.21XA Laceration without foreign body of nose, initial encounter (principal); W01.0XXA Fall on same level from slipping, tripping and stumbling without subsequent striking against object, initial encounter; F10.129 Alcohol abuse with intoxication, unspecified; Y90.9 Presence of alcohol in blood, level not specified